=== PATIENT | female | born 1965 ===

== ENCOUNTER 2018-09-28 07:48 | Outpatient (CLI) | payer OTHER | END 2018-09-28 07:49 | disposition home or self-care (01) | LOC: C.USIC 07:48 ==

== ENCOUNTER 2018-09-28 08:04 | Outpatient (CLI) | payer OTHER | END 2018-09-28 08:05 | disposition home or self-care (01) | LOC: C.LAB 08:04 | DX: R94.5 Abnormal results of liver function studies (principal) ==